=== PATIENT | male | born 1980 | race Caucasian/White ===

== ENCOUNTER 2021-09-30 07:18 | Day surgery (SDC) | payer OTHER ==
[2021-09-30] VITALS (199 sets, daily range): BP systolic 78–138; BP diastolic 40–86
[~2021-09-30] VITALS: Ht 177.8 cm; Wt 104.3 kg
--- NOTE | 2021-09-30 06:56 | NUR ---
PT AMBULATED TO ROOM WITH SPOUSE. PT HAS NAD. PT HAS BEEN ORIENTED TO ROOM, CALLL LIGHT AND POC. PT HAS NO QUESTIONS OR CONCERNS AT THIS TIME. PT HAS FALL PRECAUTIONS IN PLACE. PT ABLE TO MAKE NEEDS KNOWN AND WILL CALL IF IN NEED OF ASSISTANCE. WILL CONTINUE TO MONITOR.
[2021-09-30 08:55] LABS: ALBUMIN 3.8 g/dL (3.2-5.0); ALKALINE PHOSPHATASE 51 u/l (38-126); ANION GAP 13 (6-22 (CALC)); BILIRUBIN, TOTAL 0.3 mg/dL (0.0-1.4); BUN 15 mg/dL (9-20); BUN/CREATININE RATIO 11 (12-20 (CALC)); CARBON DIOXIDE 30 mmol/l (22-30); CHLORIDE 103 mmol/l (95-108); CREATININE 1.4 mg/dL (0.7-1.3); GFR FOR AFR.AMER. > 60 ML/MIN (>=60 (CALC)); GFR OTHER RACES 55 ML/MIN (>=60 (CALC)); HEMATOCRIT 49.7 % (39.0-50.0); HEMOGLOBIN 16.5 g/dl (14.0-18.0); IMMATURE GRANULOCYTES 0.6 % (0.0-5.0); MEAN CELL VOLUME 87.7 fL CALC (80.0-100.0); MEAN CORPUSCULAR HGB 29.1 pG CALC (26.0-32.0); MEAN CORPUSCULAR HGB CONC 33.2 g/dL CAL (32.0-36.0); NEUT# 5.29 thou/uL (1.82-7.42); POTASSIUM 4.5 mmol/l (3.5-5.1); RED BLOOD COUNT 5.67 mill/uL (4.70-6.10); RED CELL DISTRI WIDTH 13.5 % (11.5-15.5); SGOT/AST 29 u/l (17-59); SODIUM 142 mmol/l (137-146); TOTAL PROTEIN 6.5 g/dL (6.3-8.2)
--- NOTE | 2021-09-30 09:30 | NUR ---
PT RESTING SUPINE IN NO DISTRESS, ROUSES EASILY TO STIMULI. VS OBTAINED AND DR CORTEZ NOTIFIED AND NEW ORDERS RECEIVED.
[2021-09-30] MEDS ORDERED: CLONIDINE0.1 MG PO (09:58)
[2021-09-30] MEDS ORDERED: NALTREXONE50 MG PO (10:01)
[2021-09-30] MEDS ORDERED: KLONOPIN2 MG PO (10:01)
--- NOTE | 2021-09-30 11:43 | NUR ---
Induction Note Patient to [facility] procedure room. Time out performed at 1143. Patient placed on monitors, Yumi hugger, bilateral wrist restraints applied for ET tube protection. Versed 5mg given IV push at 1144 Tourniquet applied to LT arm Lidocaine 100mg given [id number] IV push followed by Rocoronium 10mg at 1146 IV push and held for 90 seconds. Propofol bolus of 110mg given at 1148 IV push. Succinylcholine 80mg given IV push at 1149. Smooth intubation with 7.5 ETT. Positive CO2. Positive Auscultation for air exchange. Patient placed on ventilator for spontaneous ventilation. Placed on Propofol IV drip at 1150. OG inserted. Positive air on auscultation. Positive gastric content. Stomach washed at this time. 1155 Naltrexone 75mg given via OG tube with Clonidine 0.2 mg given via OG Tube. OG clamped for 45 minutes. Will monitor patient for symptoms of withdrawal and adjust propfol accordingly.
--- NOTE | 2021-09-30 12:40 | NUR ---
OG open note OG open at this time. Gastric content draining into drainage bag. OG to drain for 45 minutes. Propofol will be titrated down based on patient.
--- NOTE | 2021-09-30 13:30 | NUR ---
OG close note Stomach washed at this time. Naltrexone 50 mg with Clonidine 0.2 mg via OG tube. OG will be clamped for 45 minutes.
--- NOTE | 2021-09-30 15:10 | NUR ---
OG close note Stomach washed at this time. Naltrexone 50 mg with Clonidine 0.3 mg via OG tube. OG will be clamped for 45 minutes.
--- NOTE | 2021-09-30 17:18 | NUR ---
OG close note Stomach washed at this time. Naltrexone 0 mg with Clonidine 0.2 mg via OG tube. OG will be clamped for 45 minutes.
--- NOTE | 2021-09-30 18:20 | NUR ---
Extubation note Closing medications given Benadryl 50mg IV push, Decadron 10mg IV push,Magnesium 4 grams IV, Zofran 8mg IV push, Octreotide 100mcg SC. Stomach washed out prior to extubation. Suctioned gastric content. OG removed. Patient extubated. Propofol Discontinued. Wrist restraints removed. Yumi hugger Removed. See [facility] Moderate sedate recovery record for further notes and assessment.
--- NOTE | 2021-09-30 19:00 | NUR ---
REPORT GIVEN TO PM RN. PT IS SLEEPING WITH ORAL AIRWAY IN PLACE O2 SATS @ 100% ON FACE MASK @ 2L. PT HAS FALL PRECAUTIONS IN PLACE AND IVF ACTIVE.
--- NOTE | 2021-09-30 19:45 | NUR ---
PATIENT RESTING IN BED. NO SIGNS OF DISTRESS NOTED. NON REBREATHER ON FROM PROCEDURE. VS REMAIN STABLE. BED IN LOW POSITIOM. BED ALARM ACTIVE.
--- NOTE | 2021-09-30 23:22 | NUR ---
INFORMED MD OF PATIENTS LOW BP. PATIENT ASYMPTOPMATIC. INFORMED OF PATIENT COMPLAINING OF PAIN WELL. SEE EMAR FOR MED UPDATE.
--- NOTE | 2021-09-30 23:22 | NUR ---
UPDATED MD ON PATIENT COMPLAINING OF THROAT FEELING SORE. NEW ORDER RECEIVED. SEE EMAR.
--- NOTE | 2021-10-01 00:30 | NUR ---
PATIENT RESTING IN BED ON HIS RIGHT SIDE. NO SIGNS OF DISTRESS NOTED. PATIENT APPEARS SLEEPING. WAKES UP AT TIMES TO CHANGE POSITION OR CLEAR THROAT. BED REMAINS IN LOW POSITION. BED ALARM ACTIVE.
[2021-10-01 03:31] VITALS: BP 113/70
--- NOTE | 2021-10-01 04:19 | NUR ---
PATIENT RESTING IN BED. NO SIGNS OF DISTRESS. NO COMPLAINTS OF PAIN. PATIENT ABLE TO VOICE NEEDS. RECEIVED ALL 0400 MEDICATIONS WITHOUT DIFFICULTY. BED ALARM REMAINS ON, BED IN LOW POSITION.
[2021-10-01 05:25] LABS: HEMATOCRIT 49.9 % (39.0-50.0); HEMOGLOBIN 16.8 g/dl (14.0-18.0); IMMATURE GRANULOCYTES 0.3 % (0.0-5.0); MEAN CELL VOLUME 85.9 fL CALC (80.0-100.0); MEAN CORPUSCULAR HGB 28.9 pG CALC (26.0-32.0); MEAN CORPUSCULAR HGB CONC 33.7 g/dL CAL (32.0-36.0); NEUT# 10.03 thou/uL (1.82-7.42); RED BLOOD COUNT 5.81 mill/uL (4.70-6.10); RED CELL DISTRI WIDTH 13.1 % (11.5-15.5)
[2021-10-01 05:29] LABS: ALBUMIN 3.7 g/dL (3.2-5.0); ALKALINE PHOSPHATASE 53 u/l (38-126); ANION GAP 15 (6-22 (CALC)); BILIRUBIN, TOTAL 0.4 mg/dL (0.0-1.4); BUN 17 mg/dL (9-20); BUN/CREATININE RATIO 13 (12-20 (CALC)); CARBON DIOXIDE 26 mmol/l (22-30); CHLORIDE 105 mmol/l (95-108); CREATININE 1.3 mg/dL (0.7-1.3); GFR FOR AFR.AMER. > 60 ML/MIN (>=60 (CALC)); GFR OTHER RACES 60 ML/MIN (>=60 (CALC)); MAGNESIUM 2.5 mg/dL (1.6-2.3); POTASSIUM 4.7 mmol/l (3.5-5.1); SGOT/AST 29 u/l (17-59); SODIUM 140 mmol/l (137-146); TOTAL PROTEIN 6.3 g/dL (6.3-8.2)
--- NOTE | 2021-10-01 07:16 | NUR ---
RECEIVE REPORT FROM ROBB ARRIOLA.
[2021-10-01 07:59] VITALS: BP 113/70
--- NOTE | 2021-10-01 08:00 | NUR ---
PATIENT RESTING IN BED STABLE AT THIS TIME. DOES NOT RESPIRATORY DISTRESS. BED ALARM ON AND IN LOW POSITION. SAFETY AND FALL PRECAUTIONS IN PLACE. CALL LIGHT WITHIN REACH.
--- NOTE | 2021-10-01 12:14 | NUR ---
PT RESTING STABLE IN THE BED.
--- NOTE | 2021-10-01 14:54 | NUR ---
patiemt is discharget stable.
== END 2021-10-01 14:47 | disposition home or self-care (01) | DRG 897 ==
LOC: ANR 07:18 → MS2 07:42 → ANR 10:00
PROVIDERS: ATTEND Anesthesiology
DX: F11.20 Opioid dependence, uncomplicated (principal)
CPT/HCPCS: J2354